=== PATIENT | female | born 1955 | race Caucasian/White ===

== ENCOUNTER 2021-07-21 16:16 | Emergency (ER) | payer MEDICARE ==
[~2021-07-21] VITALS: Ht 165.1 cm; Wt 68.0 kg
--- NOTE | 2021-07-21 16:35 | NUR ---
VALENTÍN C/O SHAKING AND WEAKNESS X3DAYS, SOB THIS MORNING, O2 SAT 98% ROOM AIR, HR 110. PT HAS A RASH ON HER BACK. A&OX4, ABLE TO AMBULATE SHORT DISTANCES WITH ASSISTANCE. PRIOR TO WEAKNESS PT WAS ABLE TO AMBULATE WITH NO ASSISSTIVE DEVICES. PT ATTCHED TO MONITOR. AT BEDSIDE. AWAITING MD RAMESH. Addendum: 07/21/21 at 1826 by [employer] Amendment undone in EDM - 07/21/21 at 1826 by [email or web address] URINE COLLECTED AND SENT
--- NOTE | 2021-07-21 16:49 | NUR ---
DR VIVAR AT BEDSIDE
[2021-07-21] MEDS ORDERED: IV NS 0.9% 500 ML BAG IV ONE (17:30)
--- NOTE | 2021-07-21 17:37 | NUR ---
ASSISTED PT TO THE RESTROOM WITH A WHEELCHAIR. PT UNABLE TO PROVIDE URINE AT THIS TIME. WILL ATTEMPT LATER.
--- NOTE | 2021-07-21 17:45 | NUR ---
X RAY AT BEDSIDE
--- NOTE | 2021-07-21 17:48 | NUR ---
PT TAKEN TO CT VIA [facility]
[2021-07-21 17:51] LABS: HEMATOCRIT 37 % (33-45); HEMOGLOBIN 12.6 g/dL (11.5-14.8); LYMPHOCYTES # (AUTO) 0.4 K/uL (0.8-4.8); LYMPHOCYTES % (AUTO) 6.5 % (20.0-44.0); MEAN CORPUSCULAR HGB CONC 35 g/dl (31.0-36.0); MEAN CORPUSCULAR VOLUME 108 fL (82-100); MONOCYTES # (AUTO) 0.5 K/uL (0.1-1.30); MONOCYTES % (AUTO) 7.7 % (2.0-12.0); NEUTROPHILS # (AUTO) 5.9 K/uL (1.8-8.9); NEUTROPHILS % (AUTO) 85.8 % (43.0-81.0); PLATELET COUNT (AUTO) 293 K/uL (150-450); WHITE BLOOD COUNT (AUTO) 6.8 K/uL (4.3-11.0)
[2021-07-21 18:14] LABS: ALBUMIN 2.8 g/dL (3.4-5.0); BILIRUBIN,DIRECT 0.3 mg/dL (0.0-0.2); BILIRUBIN,TOTAL 0.6 mg/dL (0.2-1.0); CALCIUM, SERUM 8.3 mg/dL (8.5-10.1); CREATININE 1.2 mg/dL (0.6-1.3); POTASSIUM 3.3 mmol/L (3.5-5.1); TOTAL PROTEIN, SERUM 6.8 g/dL (6.4-8.2)
--- NOTE | 2021-07-21 18:28 | NUR ---
URINE COLLECTED AND SENT
[2021-07-21 19:38] LABS: BILIRUBIN,URINE NEGATIVE (NEGATIVE); COLOR,URINE YELLOW (YELLOW); LEUKOCYTE ESTERASE ,URINE NEGATIVE (NEGATIVE); NITRITE, URINE NEGATIVE (NEGATIVE); PROTEIN,URINE NEGATIVE (NEGATIVE); UGLUCOSE NEGATIVE (NEGATIVE); UROBILINOGEN,URINE 0.2 EU/dL (0.2)
[2021-07-21] MEDS ORDERED: POTASSIUM CHLORIDE 20 MEQ TAB.PRT.SR PO ONE ×2 (20:14→20:30)
[2021-07-21 20:24] VITALS: BP 140/60
--- NOTE | 2021-07-21 20:24 | NUR ---
Patient discharged to home in stable condition. Written and verbal after care instructions given. Patient verbalizes understanding of instruction. IV removed. Catheter intact and site benign. Pressure and 4x4 applied to site. No bleeding noted.
== END 2021-07-21 20:24 | disposition home or self-care (01) ==
LOC: ER 16:22
DX: R53.1 Weakness (principal); E87.1 Hypo-osmolality and hyponatremia; E87.6 Hypokalemia; I10 Essential (primary) hypertension
CPT/HCPCS: 36415; 70450; 71045; 80048; 80076; 81003; 84484; 85025; 85730; 93005 ×2; 99285; J7040; J7030